=== PATIENT | male | born 1995 | race Caucasian/White ===

== ENCOUNTER 2019-11-28 15:00 | Outpatient (RCR) | payer OTHER | END 2019-12-30 | disposition home or self-care (01) | LOC: MKS.ESL.PT | DX: S02.119A Unspecified fracture of occiput, initial encounter for closed fracture (principal); S06.2X1A Diffuse traumatic brain injury with loss of consciousness of 30 minutes or less, initial encounter; S06.6X1A Traumatic subarachnoid hemorrhage with loss of consciousness of 30 minutes or less, initial encounter; S06.9X9A Unspecified intracranial injury with loss of consciousness of unspecified duration, initial encounter ==

== ENCOUNTER 2020-05-06 11:00 | Outpatient (RCR) | payer OTHER | END 2020-07-14 | disposition home or self-care (01) | LOC: MKS.ESL.PT | DX: R42 Dizziness and giddiness (principal) ==

== ENCOUNTER → 2020-08-21 | Outpatient (CLI) | payer OTHER | LOC: COL.RAD 11:25 | DX: N43.3 Hydrocele, unspecified (principal); N50.9 Disorder of male genital organs, unspecified ==